=== PATIENT | female | born 1985 | race Caucasian/White ===

== ENCOUNTER 2018-11-19 19:30 | Emergency (ER) | payer SELFPAY ==
[~2018-11-19] VITALS: Ht 175.3 cm; Wt 77.0 kg
[2018-11-19 19:37] VITALS: Ht 175.3 cm; Wt 77.0 kg
[2018-11-19] MEDS ORDERED: CHRONULAC30 ML PO (19:38)
[2018-11-19] MEDS ORDERED: DULCOLAX10 MG/SUPP RC (19:39)
[2018-11-19] MEDS ORDERED: LINZESS145 MCG PO (19:39)
[2018-11-19] MEDS ORDERED: VYVANSE40 MG PO (19:39)
[2018-11-19] MEDS ORDERED: MIRALAX17 GM PO (19:39)
[2018-11-19] MEDS ORDERED: PROTONIX40 MG PO (19:39)
[2018-11-19] MEDS ORDERED: PROZAC40 MG PO (19:40)
[2018-11-19] MEDS ORDERED: CYCLOBENZAPRINE10 MG PO (19:40)
[2018-11-19] MEDS ORDERED: LISINOPRIL5 MG PO (19:40)
[2018-11-19] MEDS ORDERED: BUSPAR5 MG PO (19:40)
[2018-11-19] MEDS ORDERED: ANXIETY MED (19:41)
[2018-11-19] MEDS ORDERED: TRAZODONE HCL150 MG PO (19:41)
[2018-11-19 20:28] LABS: BASOPHILS 0.4 % (0-2); EOSINOPHILS 2.2 % (0-7); HEMATOCRIT 35.6 % (36.0-48.0); HEMOGLOBIN 12.7 g/dL (12-16); IMMATURE GRANULOCYTES 0.4 % (0-5); LYMPHOCYTES 28.7 % (15-50); MCH 32.1 pg (26.0-34.0); MCHC 35.7 g/dL (31.0-37.0); MCV 89.9 fL (80.0-100.0); MEAN PLATELET VOLUME 10.3 fL (7.4-10.4); MONOCYTES 5.7 % (2-11); NEUTROPHILS 62.6 % (40-80); PLATELET COUNT 214 10x3/uL (130-400); RBC 3.96 10x6/uL (4.00-5.40); RDW 12.9 % (11.5-14.5); WBC 7.8 10x3/uL (4.8-10.8)
[2018-11-19 20:51] LABS: ALBUMIN 3.9 g/dL (3.4-5.0); ALKALINE PHOSPHATASE 61 U/L (46-116); ALT (SGPT) 16 U/L (10-68); BILIRUBIN - TOTAL 0.16 mg/dL (0.2-1.3); CALC OSMOLALITY 275 mosm/kg (275-300); CALCIUM 8.7 mg/dL (8.5-10.1); CARBON DIOXIDE 24.3 mmol/L (21.0-32.0); CHLORIDE - SERUM 106 mmol/L (98-107); GLUCOSE 81 mg/dL (74-106); POTASSIUM - SERUM 3.8 mmol/L (3.5-5.1); PROTEIN - SERUM 7.4 g/dL (6.4-8.2); SODIUM 139 mmol/L (136-145); UREA NITROGEN 11 mg/dL (7-18); eGFR NON AFRICAN AMERICAN 67 mL/min (90-120)
[2018-11-19 20:55] LABS: AMYLASE - SERUM 46 U/L (25-115); LIPASE 314 U/L (73-393)
[2018-11-19 21:06] LABS: TROPONIN-I < 0.017 ng/mL (0.000-0.060)
[2018-11-19 22:44] LABS: APPEARANCE CLEAR (CLEAR); BILIRUBIN NEGATIVE (NEGATIVE); COLOR YELLOW (YELLOW); GLUCOSE NEGATIVE (NEGATIVE); HCG URINE NEGATIVE (NEGATIVE); KETONE NEGATIVE (NEGATIVE); NITRITE NEGATIVE (NEGATIVE); PROTEIN NEGATIVE (NEGATIVE); UROBILINOGEN NORMAL (NORMAL)
[2018-11-20 03:24] VITALS: BP 103/61
== END 2018-11-20 00:20 | disposition home or self-care (01) ==
LOC: D.ER 19:30
PROVIDERS: Emergency Medicine
DX: K59.00 Constipation, unspecified (principal); R11.0 Nausea

== ENCOUNTER → 2020-09-22 10:13 | Outpatient (CLI) | payer OTHER ==
[2020-02-26 02:20] VITALS: BMI 26.6
[~2020-09-22 10:13] MED LIST: ANXIETY MED; BUSPAR5 MG PO; CHRONULAC30 ML PO; CYCLOBENZAPRINE10 MG PO; DULCOLAX10 MG/SUPP RC; LINZESS145 MCG PO; LISINOPRIL5 MG PO; METHOCARBAMOL500 MG PO; MIRALAX17 GM PO; PROTONIX40 MG PO; PROZAC40 MG PO; TRAZODONE HCL150 MG PO; VYVANSE40 MG PO
== END | disposition home or self-care (01) ==
LOC: D.NM 09:30
PROVIDERS: ATTEND Internal Medicine Gastroenterology
DX: R11.2 Nausea with vomiting, unspecified (principal); R10.84 Generalized abdominal pain